=== PATIENT | male | born 1975 | race Two or more races ===

== ENCOUNTER 2016-12-20 16:46 | Emergency (ER) | payer OTHER ==
[2016-12-20] MEDS ORDERED: Bacitracin/Neomycin/Polymyxin B Oint 0.9 GM U/D Packet TOP ONE (16:55)
[2016-12-20] MEDS ORDERED: Acetaminophen 325 MG Tab PO ONE (16:55)
[2016-12-20 16:58] VITALS: BP 136/81
--- NOTE | 2016-12-20 17:02 | EDM.PDOC ---
ED HPI GENERAL MEDICAL PROBLEM - General Chief Complaint: Laceration Stated Complaint: Facial injury, Laceration Time Seen by Provider: 12/20/16 16:50 Source of Information: Reports: Patient, Family (), Old records ([facility] chart/EMR) History Limitations: Reports: No limitations - History of Present Illness INITIAL COMMENTS - FREE TEXT/NARRATIVE: The patient was brought to the emergency room via private automobile for evaluation of a Worker's Compensation injury, which occurred at about 16:00 hours. The patient was attempting to pull another tractor out of his friend's farm with his tractor when the chain broke and flew through his tractor's open window hitting him in the right forehead region. No history of broken glass, epistaxis, etc. with mild bleeding from the laceration site. No history of foreign body, significant epistaxis, headaches, visual changes, nausea, emesis, change in mental status, loss of consciousness, dizziness, neck/back pain, paresthesias, neurological deficits, or other complaints or injuries. His last tetanus booster was about one year ago by his history. The patient also denies any recent fever, cough, wheezing, dyspnea, etc.. 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 Denies: Allergic rhinitis, Glaucoma, Hard of hearing, Impaired vision, Macular degeneration, Retinal detachment Cardiovascular History: Reports: None. Denies: Afib, Aneurysm, Arrhythmia, Blood clots/VTE/DVT, CAD, Heart Failure, Heart murmur, High cholesterol, Hypertension, AR, Syncope Respiratory History: Reports: Asthma, Intubation, previous. Denies: COPD, Intubation, difficult, PE, Pneumothorax, Sleep apnea Gastrointestinal History: Reports: GERD. Denies: Celiac disease, Cholelithiasis , Chronic constipation, Chronic diarrhea, Colon polyp, Fecal incontinence, Gastritis, GI bleed, Hepatitis, Inflammatory bowel disease, Irritable bowel syndrome, Jaundice, Pancreatitis, PUD Genitourinary History: Reports: None. Denies: BPH, Chronic renal insuffiency, Renal calculus, STD, Urinary incontinence, UTI, recurrent Musculoskeletal History: Reports: None. Denies: Arthritis, Back pain, chronic, Fracture, Gout, Neck pain, chronic, Osteoarthritis, RA, SLE Neurological History: Reports: None, Headaches, chronic. Denies: Cerebral aneurysms, Concussion, CVA, Head trauma, Migraines, MS, Parkinson's, Seizure, TIA Psychiatric History: Reports: None. Denies: Abuse, victim of, ADD, ADHD, Addiction, Anxiety, Depression, Psych Hospitalization(s), PTSD, Suicide attempt , Suicidal ideation Endocrine/Metabolic History: Denies: Diabetes, type I, Diabetes, type II, Hypothyroidism, IDDM Hematologic History: Reports: None. Denies: Anemia, Blood transfusion(s), Iron deficiency Immunologic History: Reports: None. Denies: AIDS, HIV, SLE Oncologic (Cancer) History: Reports: None. Denies: Basal cell carcinoma, Hodgkin's Lymphoma, Leukemia, Lymphoma, Malignant melanoma, Non-Hodgkin's Lymphoma, Squamous cell carcinoma Dermatologic History: Reports: None. Denies: Eczema, Psoriasis - Infectious Disease History Infectious Disease History: Reports: None. Denies: C-difficile, Chicken pox, Measles, Meningitis, Mononucleosis, MRSA, Mumps, Pertussis (whooping cough), Rheumatic Fever, Rubella, Scarlet fever, Shingles, TB, VRE - Past Surgical History Head Surgeries/Procedures: Reports: None HEENT Surgical History: Reports: None. Denies: Adenoidectomy, Cataract surgery , Eye surgery, Laser surgery, Myringotomy w tube(s), Naso-sinus surgery, Oral surgery, Tonsillectomy Cardiovascular Surgical History: Reports: None. Denies: Varicose Respiratory Surgical History: Reports: None. Denies: Lung Biopsies, Thoracentesis GI Surgical History: Reports: Appendectomy, Other (see below). Denies: Cholecystectomy, Colonoscopy, EGD, Hernia, abdominal, Hernia, inguinal, Hernia repair/other Other GI Surgeries/Procedures: Laparoscopic appendectomy with fatty tumor involvement in about 2010 Male Surgical History: Denies: Circumcision, TURP-Transurethral resection of prostate, Vasectomy Endocrine Surgical History: Reports: None. Denies: Thyroid biopsy Neurological Surgical History: Denies: C-Spine, Discectomy, Laminectomy, Lumbar spine, Spinal fusion, Vertebroplasty Musculoskeletal Surgical History: Reports: None. Denies: Arthroscopic knee, Arthroscopic procedure, Carpal tunnel, Ganglion cyst, Joint replacement, ORIF, Shoulder surgery Oncologic Surgical History: Reports: None Dermatological Surgical History: Reports: Other (see below) Other Dermatological Surgeries/Procedures: Excision of benign lipoma versus mild gynecomastia from his right chest in the early - Past Imaging History Past Imaging History: Reports: None Social & Family History - Tobacco Use Smoking Status *Q: Current Every Day Smoker Tobacco Use Within Last Twelve Months: No Second Hand Smoke Exposure: No Second Hand Smoke Education Provided: No - Caffeine Use Caffeine Use: Reports: Coffee (3 cups per day), Soda (2 sodas per day). Denies : Energy drinks, Tea - Alcohol Use Alcohol Use History: No Days Per Week of Alcohol Use: 0 (No previous DWIs, problems with alcohol abuse, etc.) Alcohol Use in Last Twelve Months: No - Recreational Drug Use Recreational Drug Use: No Drug Use in Last 12 Months: No Recreational Drug Type: Denies: Amphetamines (Speed), Cocaine, Heroin, Inhalants (Glues, Solvents, Aerosols), LSD (Acid), Marijuana/Hashish, Methamphetamine, Morphine - Living Situation & Occupation Living situation: Reports: (2006, one son with a daughter with from a previous relationship), with family (, son) Occupation: employed ([employer]) ED ROS GENERAL - Review of Systems Review Of Systems: ROS reveals no pertinent complaints other than HPI. ED EXAM, SKIN/RASH Exam: See Below Exam Limited By: No limitations General Appearance: alert, WD/WN, no apparent distress Eye Exam: right eye: periorbital changes (Moderate infraorbital ecchymosis and swelling with minimal localized tenderness no crepitation, deformity, or evidence of significant fracture), bilateral eye: EOMI, normal fundi, PERRL Ears: normal external exam, normal canal, hearing grossly normal, normal TMs Nose: nasal tenderness, nasal deformity (Mild nasal bridge swelling with no significant nasal septum deviation although possible borderline deformity, mild epistaxis from the left naris with no septal hematoma), nasal swelling, nasal drainage, other (1 cm in length irregular superficial laceration over the proximal right lateral nasal surface) Throat/Mouth: Normal inspection, Normal lips, Normal teeth, Normal gums, Normal oropharynx, Normal voice, No airway compromise. No: Dysphagia, Perioral cyanosis Head: normocephalic, facial tenderness (Mild facial tenderness over laceration site with an irregular 2-3 cm laceration over the medial right eyebrow, no crepitation, deformity, foreign body, or sign of fracture, mild superficial abrasions superior to the above laceration site). No: facial swelling, sinus tenderness Neck: normal inspection, supple, non-tender, full range of motion. No: lymphadenopathy (L), lymphadenopathy (R), thyromegaly Respiratory/Chest: no respiratory distress, lungs clear, normal breath sounds, no accessory muscle use, chest non-tender. No: pleural rub, retractions Cardiovascular: normal peripheral pulses, regular rate, rhythm, no edema, no gallop, no JVD, no murmur, no rub. No: gallop/S3, gallop/S4, friction rub Peripheral Pulses: 4+: radial (L), radial (R), dorsalis pedis (L), dorsalis pedis (R) GI/Abdominal: Normal Bowel Sounds, Soft, Non-Tender, No Organomegaly, No Distention, No Abnormal Bruit, No Mass, Pelvis Stable. No: Guarding (Male) Exam: Deferred Rectal (Males) Exam: Deferred Back Exam: normal inspection, full range of motion. No: CVA tenderness (L), CVA tenderness (R), muscle spasm Extremities: normal inspection, normal range of motion, non-tender, no pedal edema, normal capillary refill Neurological: alert, oriented, CN II-XII intact, normal cognition, normal gait, normal reflexes (Negative Babinski's), no motor/sensory deficits Psychiatric: normal affect, normal mood Skin: Warm, Dry, Ecchymosis (Right infraorbital as above), Wound/incision (As above). No: Diaphoretic Location, Skin: face Characteristics: other (Irregular) Lymphatic: no adenopathy ED SKIN PROCEDURES - Laceration/Wound Repair Right Upper Face Lac/wound length in cm: 32 Appearance: superficial, stellate, irregular, clean Distal NVT: neuro & vascular intact, no tendon injury Anesthetic type: local Local anesthesia - Lidocaine (Xylocaine): 1% plain Local anesthetic volume: other (7 ml) Skin prep: providone-iodine (betadine) Saline irrigation (cc's): 0 Exploration/Debridement/Repair: wound explored, in a bloodless field, explored to base, multiple flaps aligned Closed with: sutures Suture size: 4-0 # of sutures: 4 Suture type: nylon, interrupted, simple Sterile dressing applied: nurse Tetanus status addressed: Yes Complications: No Right Lateral Proximal Nose Lac/wound length in cm: 1 Appearance: superficial, irregular, clean Distal NVT: neuro & vascular intact, no tendon injury Local anesthetic volume: other (None) Skin prep: providone-iodine (betadine) Saline irrigation (cc's): 0 Exploration/Debridement/Repair: wound explored, in a bloodless field, explored to base, multiple flaps aligned Closed with: wound adhesive Sterile dressing applied: nurse Tetanus status addressed: Yes Complications: No Course - Vital Signs Last Recorded V/S: Last Vital Signs Temp 36.6 C 12/20/16 16:56 Pulse 67 12/20/16 16:56 Resp 20 12/20/16 16:56 BP 136/81 12/20/16 16:56 Pulse Ox 100 12/20/16 16:56 Vital Signs - 24 hr 12/20/16 16:56 Temperature [ 36.6 C Oral] Pulse, 67 Peripheral [ Right Pulse Oximetry] Respiratory 20 Rate Blood Pressure 136/81 [Right Upper Arm] O2 Sat by Pulse 100 Oximetry - Orders/Labs/Meds Orders: Active Orders 24 hr Category Date Time Status Max Facial Sinus wo Cont [CT] Stat Exams 12/20/16 16:54 Taken Obtain Past Medical Record [OM.PC] Routine Oth 12/20/16 16:54 Active Labs: None Meds: Medications Discontinued Medications Generic Name Dose Route Start Last Admin Trade Name Freq PRN Reason Stop Dose Admin Acetaminophen 1,000 mg 12/20/16 17:12 12/20/16 17:17 Tylenol Extra Strength PO 12/20/16 17:13 1,000 mg ONETIME ONE Administration Lidocaine HCl 5 ml 12/20/16 17:06 12/20/16 17:18 Xylocaine-Mpf 1% INJECT 12/20/16 17:07 5 ml ONETIME ONE Administration Lidocaine HCl 5 ml 12/20/16 17:06 12/20/16 17:18 Xylocaine-Mpf 1% INJECT 12/20/16 17:07 5 ml ONETIME ONE Administration Neomycin/Polymyxin/Bacitracin 1 each 12/20/16 16:55 12/20/16 17:18 Triple Antibiotic Oint TOP 12/20/16 16:56 1 each ONETIME ONE Administration - Radiology Interpretation Free Text/Narrative:: Telephone consultation at 17:25 hours with the radiology department at [facility] with verbal report of noncontrast CT scan of the maxillofacial region. There is a hairline right orbital floor fracture with mild air noted in the ocular cavity but no displacement, foreign body, etc. Additional nondisplaced proximal nasal bone fracture noted with no nasal septum deviation, etc. CT Results Date: 12/20/16 CT Results Time: 17:25 Departure - Departure Time of Disposition: 18:10 Disposition: Home, Self-Care 01 Condition: good Clinical Impression: Laceration, Peptic reflux disease Fracture of right orbital floor Qualifiers: Encounter type: initial encounter Fracture type: closed Qualified Code(s): S02.31XA - Fracture of orbital floor, right side, initial encounter for closed fracture Nasal bone fracture Qualifiers: Encounter type: initial encounter Fracture type: closed Qualified Code(s): S02.2XXA - Fracture of nasal bones, initial encounter for closed fracture - Discharge Information Instructions: Laceration Care, Adult, [id number], Stitches, [place], or Adhesive Wound Closure, [id number], Nasal Fracture, [id number], Orbital Floor Fracture, Non-Blowout, Head Injury, Adult, [id number] Forms: ED Department Discharge Additional Instructions: 1. Followup with your regular provider in 7 days as directed for reevaluation and removal of 4 stitches and recommended repeat facial bone x-rays and/or CT scan of the maxillofacial bones at followup. 2. Tylenol 650 mg by mouth every 4 hours and/or OTC ibuprofen 2-3 tabs by mouth every 6 hours with food as directed./needed. Next dose of Tylenol in about 4 hours with next dose of ibuprofen in about 5 hours both as needed 3. Antibacterial soap wash/soak with subsequent antibacterial dressing such as Neosporin, etc. as directed 2 times per day until the wound or laceration site completely heals. Keep the area clean and dry with activity restrictions as discussed. 4. Head precautions as directed-see form. 5. Ice packs as directed - Problem List & Annotations (1) Fracture of right orbital floor SNOMED Code(s): 344044373 Code(s): S02.31XA - FRACTURE OF ORBITAL FLOOR, RIGHT SIDE, INIT Status: Acute Priority: High Current Visit: Yes Onset Date: 12/20/16 Annotation/ Comment:: Observe closely by his regular provider as per discharge instructions. Symptomatic treatment for now. Repeat CT scan may be beneficial , although regular facial bone x-rays may also be an option at followup. Injury likely nonoperative. Qualifiers: Encounter type: initial encounter Fracture type: closed Qualified Code(s) : S02.31XA - Fracture of orbital floor, right side, initial encounter for closed fracture (2) Laceration SNOMED Code(s): 615291585 Code(s): PAK7982 - Status: Acute Priority: High Current Visit: Yes Onset Date: 12/20/16 Annotation/Comment:: Excellent results with laceration repairs as above. Wound care, activity restrictions, etc. discussed. Patient states he does not need a work excuse. Workmen's Compensation forms were completed, however. His tetanus booster is up-to-date. (3) Nasal bone fracture SNOMED Code(s): 327122017 Code(s): S02.2XXA - FRACTURE OF NASAL BONES, INIT ENCNTR FOR CLOSED FRACTURE Status: Acute Priority: High Current Visit: Yes Onset Date: 12/20/16 Annotation/Comment:: Mild nasal fracture as above. A minimal left-sided occasional epistaxis with nasal packing not warranted at this time. Followup as per discharge instructions Qualifiers: Encounter type: initial encounter Fracture type: closed Qualified Code(s) : S02.2XXA - Fracture of nasal bones, initial encounter for closed fracture (4) Peptic reflux disease SNOMED Code(s): 10270679 Code(s): K21.9 - GASTRO-ESOPHAGEAL REFLUX DISEASE WITHOUT ESOPHAGITIS Status: Chronic Priority: Medium Current Visit: Yes Annotation/Comment:: Recently under suboptimal control. Patient advised to discuss this further with his regular provider with further workup depending on his clinical course. Consider additional cardiac workup depending on his risk factors with trial of OTC Prilosec reasonable at this time - Problem List Review Problem List Initiated/Reviewed/Updated: Yes - My Orders Last 24 Hours: My Active Orders 12/20/16 16:54 Max Facial Sinus wo Cont [CT] Stat Obtain Past Medical Record [OM.PC] Routine - Assessment/Plan Last 24 Hours: My Active Orders 12/20/16 16:54 Max Facial Sinus wo Cont [CT] Stat Obtain Past Medical Record [OM.PC] Routine Assessment:: As above Plan: As above. Extensive precautions were given to the patient and his , who are in agreement with the treatment plan. See Patient Instructions for further treatment and plan.
[2016-12-20] MEDS ORDERED: Acetaminophen 500 MG Tab PO ONE (17:12)
== END 2016-12-20 18:10 | disposition home or self-care (01) ==
LOC: LL.ED 16:46
DX: S02.2XXA Fracture of nasal bones, initial encounter for closed fracture (principal); S02.31XA Fracture of orbital floor, right side, initial encounter for closed fracture; S01.111A Laceration without foreign body of right eyelid and periocular area, initial encounter; K21.9 Gastro-esophageal reflux disease without esophagitis; J45.909 Unspecified asthma, uncomplicated; F17.210 Nicotine dependence, cigarettes, uncomplicated; Z79.82 Long term (current) use of aspirin; Z98.890 Other specified postprocedural states; W22.8XXA Striking against or struck by other objects, initial encounter; Y93.89 Activity, other specified; Y92.69 Other specified industrial and construction area as the place of occurrence of the external cause; Y99.0 Civilian activity done for income or pay
CPT/HCPCS: 12013; 70486; 99284; A9270